=== PATIENT | female | born 1975 | race African-American/Black ===

== ENCOUNTER 2019-03-31 18:07 | Emergency (ER) | payer OTHER ==
[~2019-03-31] VITALS: Ht 165.1 cm; Wt 82.6 kg
[2019-03-31 19:43] LABS: BILIRUBIN,URINE NEGATIVE (NEG); CLARITY,URINE CLEAR; COLOR,URINE YELLOW; NITRITE,URINE NEGATIVE (NEG); PROTEIN,URINE NEGATIVE (NEG-TRACE); UROBILINOGEN,URINE 0.2 mg/dL (0.2 mg/dL)
[2019-03-31 19:51] LABS: BACTERIA,URINE 0 /HPF (0-FEW); RBC,URINE 0 /HPF (0-2); SQUAMOUS EPITHELIAL CELL,UR FEW /LPF
--- NOTE | 2019-03-31 20:35 | PHYS DOC ---
Past Medical History Past Medical History: Hypertension Past Surgical History: Tubal ligation Alcohol Use: Occasionally Drug Use: None Adult General Chief Complaint Chief Complaint: VAGINAL BLEEDING HPI HPI Patient is a 43 year old female who presents to the ER with vaginal bleeding been ongoing for 2 weeks. It has increased in volume over the last 5 days. She describes it as foul smelling with clots. Associated symptoms include headache and dizziness for several days. Pain is 5/10 with a character of aches. Has had her tubes tied in the past. Recently went to see her primary care doctor and was told her blood pressure was high and to come to ER and did not come. Blood pressure is high 173/84 while in room. Has not tried anything before arrival. Review of Systems Review of Systems Constitutional: Denies fever or chills [] Eyes: Denies change in visual acuity, redness, or eye pain [] HENT: Denies nasal congestion or sore throat [] Respiratory: Denies cough or shortness of breath [] Cardiovascular: No additional information not addressed in HPI [] GI: Reports Right lower abdominal pain. Denies nausea, vomiting, bloody stools or diarrhea [] : Denies dysuria or hematuria [] Musculoskeletal: Denies back pain or joint pain [] Integument: Denies rash or skin lesions [] Neurologic: Reports Dizziness and headache, Denies focal weakness or sensory changes [] Endocrine: Denies polyuria or polydipsia [] Complete systems were reviewed and found to be within normal limits, except as documented in this note. Current Medications Current Medications Current Medications Medications (Trade) Dose Ordered Sig/Angie Start Time Stop Time Status Last Admin Dose Admin Acetaminophen/ Butalbital/ Caffeine (Fioricet) 1 tab 1X ONCE 03/31/19 22:00 03/31/19 22:01 DC 03/31/19 21:56 1 TAB Sodium Chloride 1,000 ml @ 1,000 mls/hr 1X ONCE 03/31/19 22:00 03/31/19 22:59 03/31/19 21:56 1,000 MLS/HR Allergies Allergies Allergies Coded Allergies Type Severity Reaction Last Updated Verified peanut Allergy Intermediate RASH 03/31/19 Yes peanut oil Allergy Intermediate RASH 03/31/19 Yes Physical Exam Physical Exam Constitutional: Well developed, well nourished, no acute distress, non-toxic appearance. [] HENT: Normocephalic, atraumatic, bilateral external ears normal, oropharynx moist, no oral exudates, nose normal. [] Eyes: PERRLA, EOMI, conjunctiva normal, no discharge. [] Neck: Normal range of motion, no tenderness, supple, no stridor. [] Cardiovascular:Heart rate regular rhythm, no murmur [] Lungs & Thorax: Bilateral breath sounds clear to auscultation [] Abdomen: Bowel sounds normal, soft, tenderness in the right lower quadrant, no masses, no pulsatile masses. [] Skin: Warm, dry, no erythema, no rash. [] Back: No tenderness, no CVA tenderness. [] Extremities: No tenderness, no cyanosis, no clubbing, ROM intact, no edema. [] Neurologic: Alert and oriented X 3, normal motor function, normal sensory function, no focal deficits noted. [] Psychologic: Affect normal, judgement normal, mood normal. [] Current Patient Data Vital Signs Vital Signs Date Time Temp Pulse Resp B/P (MAP) Pulse Ox O2 Delivery O2 Flow Rate FiO2 03/31/19 18:30 97.9 83 18 140/82 (101) 100 Room Air 97.9 Lab Values Laboratory Tests Test 03/31/19 19:19 03/31/19 19:35 03/31/19 21:05 Urine Collection Type Unknown Urine Color Yellow Urine Clarity Clear Urine pH 6.0 Urine Specific Raymond 1.010 Urine Protein Negative mg/dL (NEG-TRACE) Urine Glucose (UA) Negative mg/dL (NEG) Urine Ketones (Stick) Negative mg/dL (NEG) Urine Blood Negative (NEG) Urine Nitrite Negative (NEG) Urine Bilirubin Negative (NEG) Urine Urobilinogen Dipstick 0.2 mg/dL (0.2 mg/dL) Urine Leukocyte Esterase Negative (NEG) Urine RBC 0 /HPF (0-2) Urine WBC 1-4 /HPF (0-4) Urine Squamous Epithelial Cells Few /LPF Urine Bacteria 0 /HPF (0-FEW) Urine Mucus Slight /LPF POC Urine HCG, Qualitative Hcg negative (Negative) White Blood Count 7.9 x10^3/uL (4.0-11.0) Red Blood Count 3.37 x10^6/uL (3.50-5.40) L Hemoglobin 9.0 g/dL (12.0-15.5) L Hematocrit 28.2 % (36.0-47.0) L Mean Corpuscular Volume 84 fL (79-100) Mean Corpuscular Hemoglobin 27 pg (25-35) Mean Corpuscular Hemoglobin Concent 32 g/dL (31-37) Red Cell Distribution Width 17.2 % (11.5-14.5) H Platelet Count 235 x10^3/uL (140-400) Neutrophils (%) (Auto) 53 % (31-73) Lymphocytes (%) (Auto) 33 % (24-48) Monocytes (%) (Auto) 10 % (0-9) H Eosinophils (%) (Auto) 4 % (0-3) H Basophils (%) (Auto) 1 % (0-3) Neutrophils # (Auto) 4.2 x10^3uL (1.8-7.7) Lymphocytes # (Auto) 2.6 x10^3/uL (1.0-4.8) Monocytes # (Auto) 0.8 x10^3/uL (0.0-1.1) Eosinophils # (Auto) 0.3 x10^3/uL (0.0-0.7) Basophils # (Auto) 0.1 x10^3/uL (0.0-0.2) Sodium Level 141 mmol/L (136-145) Potassium Level 4.2 mmol/L (3.5-5.1) Chloride Level 104 mmol/L (98-107) Carbon Dioxide Level 27 mmol/L (21-32) Anion Gap 10 (6-14) Blood Urea Nitrogen 7 mg/dL (7-20) Creatinine 0.8 mg/dL (0.6-1.0) Estimated GFR (Cockcroft-Gault) 93.9 BUN/Creatinine Ratio 9 (6-20) Glucose Level 88 mg/dL (70-99) Calcium Level 9.0 mg/dL (8.5-10.1) Total Bilirubin 0.1 mg/dL (0.2-1.0) L Aspartate Amino Transferase (AST) 29 U/L (15-37) Alanine Aminotransferase (ALT) 28 U/L (14-59) Alkaline Phosphatase 47 U/L (46-116) Total Protein 7.7 g/dL (6.4-8.2) Albumin 3.6 g/dL (3.4-5.0) Albumin/Globulin Ratio 0.9 (1.0-1.7) L Laboratory Tests 03/31/19 21:05 Laboratory Tests 03/31/19 21:05 EKG EKG [] Radiology/Procedures Radiology/Procedures []PATIENT: MULU ROGERSACCOUNT: [id number]#: [id number] : 1975 LOCATION: ER AGE: 43 SEX: F EXAM STATUS: REG ER ORD. PHYSICIAN: OSCAR GUILLEN APRN REASON: vaginal bleeding PROCEDURE: PELVIS ULTRASOUND Pelvic ultrasound 03/31/2019 CLINICAL HISTORY: Vaginal bleeding and cramping for 14 days. Negative test. TECHNIQUE: Using the distended urinary bladder as a sonographic window, a real-time ultrasound examination of the pelvis was performed. Multiple images were obtained. FINDINGS: The uterus is enlarged. It measures 14.5 x 9.0 x 7.3 cm in longitudinal, transverse, and AP dimensions. The endometrial echo complex measures 1 cm in thickness which is within normal limits. A hypoechoic mass is seen within the posterior aspect of the mid uterine body which measures 5.5 cm in greatest diameter. This is felt to most likely represent a submucosal fibroid. No additional abnormality of the uterus is seen. Both ovaries are within normal limits in size. The right ovary measures 4.7 x 4.0 x 2.9 cm in size. A 2.8 cm simple cyst is seen involving the right ovary. The left ovary measures 4.1 x 3.9 x 3.2 cm in size. A 2.1 cm dominant follicle is seen involving the left ovary. No free fluid is seen. IMPRESSION: 1. 5.5 cm oval-shaped hypoechoic mass is seen within the posterior aspect of the uterus which is felt to most likely represent a submucosal fibroid. 2. 2.8 cm simple right ovarian cyst. Electronically signed by: Papa Cuello MD (03/31/2019 10:15 PM) [facility] Course & Med Decision Making Course & Med Decision Making Pertinent Labs and Imaging studies reviewed. (See chart for details) Will get labs to evaluate h/h. Also will get ultrasound and address blood pressure. Imaging showed uterine fibroid. Will have f/u with OB. Blood pressure improved to 123/79 on its own. Dragon Disclaimer Dragon Disclaimer This electronic medical record was generated, in whole or in part, using a voice recognition dictation system. Departure Departure Impression: Primary Impression: Uterine fibroid Disposition: HOME, SELF-CARE Condition: STABLE Referrals: BHARAT CARLIN Jr, MD (PCP) Patient Instructions: Uterine Fibroid, [id number] Additional Instructions: Follow up [facility] for further care. Follow up with PCP as needed. Return to ER as needed. Problem Qualifiers Primary Impression: Uterine fibroid Uterine leiomyoma location: unspecified location Qualified Codes: D25.9 - Leiomyoma of uterus, unspecified OSCAR GUILLEN APRN March 31, 2019 20:35
[2019-03-31 21:14] LABS: BASO # 0.1 x10^3/uL (0.0-0.2); BASO % 1 % (0-3); EOS # 0.3 x10^3/uL (0.0-0.7); EOS % 4 % (0-3); HEMATOCRIT 28.2 % (36.0-47.0); LYMPH # 2.6 x10^3/uL (1.0-4.8); LYMPH % 33 % (24-48); MEAN CORPUSCULAR HEMOGLOBIN 27 pg (25-35); MEAN CORPUSCULAR HGB CONC 32 g/dL (31-37); MEAN CORPUSCULAR VOLUME 84 fL (79-100); MONO # 0.8 x10^3/uL (0.0-1.1); MONO % 10 % (0-9); NEUT # 4.2 x10^3uL (1.8-7.7); NEUT % 53 % (31-73); PLATELET COUNT 235 x10^3/uL (140-400); RED BLOOD COUNT 3.37 x10^6/uL (3.50-5.40); RED CELL DISTRIBUTION WIDTH 17.2 % (11.5-14.5); WHITE BLOOD COUNT 7.9 x10^3/uL (4.0-11.0)
[2019-03-31 21:22] LABS: CREATININE 0.8 mg/dL (0.6-1.0); GFR 93.9; POTASSIUM 4.2 mmol/L (3.5-5.1)
[2019-03-31 21:27] LABS: ALBUMIN 3.6 g/dL (3.4-5.0); ALBUMIN/GLOBULIN RATIO 0.9 (1.0-1.7); TOTAL BILIRUBIN 0.1 mg/dL (0.2-1.0); TOTAL PROTEIN 7.7 g/dL (6.4-8.2)
[2019-03-31] MEDS ORDERED: IV NORMAL SALINE 1000ML BAG 1,000 ML IV ONE (22:00)
[2019-03-31] MEDS ORDERED: BUTALB/APAP/CAFEIN 50/325/40MG TABLET. PO ONE (22:00)
--- NOTE | 2019-03-31 22:18 | RAD ---
Pelvic ultrasound 03/31/2019 CLINICAL HISTORY: Vaginal bleeding and cramping for 14 days. Negative test. TECHNIQUE: Using the distended urinary bladder as a sonographic window, a real-time ultrasound examination of the pelvis was performed. Multiple images were obtained. FINDINGS: The uterus is enlarged. It measures 14.5 x 9.0 x 7.3 cm in longitudinal, transverse, and AP dimensions. The endometrial echo complex measures 1 cm in thickness which is within normal limits. A hypoechoic mass is seen within the posterior aspect of the mid uterine body which measures 5.5 cm in greatest diameter. This is felt to most likely represent a submucosal fibroid. No additional abnormality of the uterus is seen. Both ovaries are within normal limits in size. The right ovary measures 4.7 x 4.0 x 2.9 cm in size. A 2.8 cm simple cyst is seen involving the right ovary. The left ovary measures 4.1 x 3.9 x 3.2 cm in size. A 2.1 cm dominant follicle is seen involving the left ovary. No free fluid is seen. IMPRESSION: 1. 5.5 cm oval-shaped hypoechoic mass is seen within the posterior aspect of the uterus which is felt to most likely represent a submucosal fibroid. 2. 2.8 cm simple right ovarian cyst. Electronically signed by: Papa Cuello MD (03/31/2019 10:15 PM) [facility]
[2019-03-31 23:04] VITALS: BP 123/63
== END 2019-03-31 23:05 | disposition home or self-care (01) ==
LOC: ER 18:07
DX: D25.9 Leiomyoma of uterus, unspecified (principal); I10 Essential (primary) hypertension; R42 Dizziness and giddiness; Z98.51 Tubal ligation status; Z91.010 Allergy to peanuts
CPT/HCPCS: 36415; 76856; 80053; 81001; 81025; 85025; 96360; 99285; J7030

== ENCOUNTER → 2019-04-04 | Outpatient (CLI) | payer OTHER ==
[2019-03-31 23:04] VITALS: BP 123/63
[2019-04-04 16:46] LABS: BASO % 0 % (0-3); EOS # 0.4 x10^3/uL (0.0-0.7); EOS % 5 % (0-3); HEMATOCRIT 28.8 % (36.0-47.0); LYMPH # 2.4 x10^3/uL (1.0-4.8); LYMPH % 32 % (24-48); MEAN CORPUSCULAR HEMOGLOBIN 26 pg (25-35); MEAN CORPUSCULAR HGB CONC 31 g/dL (31-37); MEAN CORPUSCULAR VOLUME 84 fL (79-100); MONO # 0.9 x10^3/uL (0.0-1.1); MONO % 12 % (0-9); NEUT # 3.9 x10^3uL (1.8-7.7); NEUT % 52 % (31-73); PLATELET COUNT 262 x10^3/uL (140-400); RED BLOOD COUNT 3.45 x10^6/uL (3.50-5.40); RED CELL DISTRIBUTION WIDTH 16.6 % (11.5-14.5); WHITE BLOOD COUNT 7.5 x10^3/uL (4.0-11.0)
[2019-04-04 17:16] LABS: FREE T4 0.87 ng/dL (0.76-1.46); THYROID STIM HORMONE (TSH) 3.507 uIU/mL (0.358-3.74)
== END | disposition home or self-care (01) ==
LOC: LAB 16:26
PROVIDERS: ATTEND Obstetrics & Gynecology
DX: N92.0 Excessive and frequent menstruation with regular cycle (principal); N94.6 Dysmenorrhea, unspecified; D25.9 Leiomyoma of uterus, unspecified
CPT/HCPCS: 36415; 84146; 84439; 84443; 85025